=== PATIENT | male | born 1950 | race Caucasian/White ===

== ENCOUNTER 2023-03-02 11:39 | Inpatient (IN) | payer MEDICARE, OTHER ==
[~2023-03-02] VITALS: Ht 172.7 cm; Wt 81.9 kg
[2023-03-02 12:12] LABS: Basophils # (auto) 0 10 ^3/uL (0-0.2); Basophils % (auto) 0.3 % (0.0-2.0); Eosinophils # (auto) 0 10 ^3/uL (0-0.8); Hematocrit 52.2 % (41.0-53.0); Hemoglobin 16.9 g/dL (13.5-17.5); Lymphocytes # (auto) 0.9 10 ^3/uL (0.4-5.4); Lymphocytes % (auto) 7.1 % (10.0-50.0); Mean Corpuscular Hgb Conc. 32.4 g/dL (32.0-36.0); Mean Corpuscular Volume 95.6 fL (80.0-100.0); Monocytes # (auto) 0.9 10 ^3/uL (0-1.3); Monocytes % (auto) 7.4 % (0.0-12.0); Neutrophils # (auto) 10.6 10 ^3/uL (1.6-8.6); Neutrophils % (auto) 85.2 % (37.0-80.0); Nucleated Red Blood Cells % 0.1 %; Red Blood Cells 5.46 10^6/uL (4.5-5.90); Red Cell Distribution Width 17.9 % (11.8-14.3); White Blood Cell 12.5 10^3/uL (4.4-10.8)
[2023-03-02] MEDS ORDERED: dilTIAZem 25 MG/5 ML VIAL IV ONE ×2 (12:12→12:15)
[2023-03-02] MEDS ORDERED: FUROSEMIDE 40 MG/4 ML VIAL ONE (12:13)
[2023-03-02] MEDS ORDERED: FUROSEMIDE 40 MG/4 ML VIAL IV ONE (12:15)
[2023-03-02] MEDS ORDERED: dilTIAZem 125mg/125ml BAG KIT 125 ML IV ONE (12:30)
[2023-03-02] MEDS ORDERED: DIGOXIN (250MCG/ML) 2 ML AMPULE IV ONE (13:00)
[2023-03-02] MEDS ORDERED: MAGNESIUM SULFATE 1GM/100ML 100 ML IV ONE (13:00)
[2023-03-02] MEDS ORDERED: SODIUM CHLORIDE 0.9% 500 ML IV ONE (13:00)
[2023-03-02 13:04] LABS: Albumin 3.3 g/dL (3.4-5.0); Calcium 8.7 mg/dL (8.5-10.1); Potassium 5.3 mmol/L (3.5-5.1)
[2023-03-02 13:13] LABS: BUN/Creatinine Ratio 21.7 (10.0-20.0); Total Protein 6.7 g/dL (6.4-8.2)
[2023-03-02] MEDS ORDERED: ALBUTEROL SULF 2.5 MG/0.5ML(0.5%) NEB SOLN NEB ONE (14:00)
[2023-03-02] MEDS ORDERED: FUROSEMIDE 20 MG/2 ML VIAL IV ONE (14:00)
[2023-03-02] MEDS ORDERED: InsuLIN REG 1unit/0.01ml Soln (100units/ml) IV ONE (14:00)
[2023-03-02] MEDS ORDERED: DEXTROSE (50%) 50ML SYRG IV ONE (14:00)
[2023-03-02] MEDS ORDERED: SODIUM BICARBONATE 8.4% INJ 50ML SYRINGE IV ONE (14:00)
[2023-03-02] MEDS ORDERED: CALCIUM GLUC 1,000mg/50ml-NS 50 ML IV ONE (14:00)
[2023-03-02] MEDS ORDERED: SODIUM ZIRCONIUM CYCL 10 GM PAK PO ONE (14:00)
[2023-03-02] MEDS ORDERED: DEXTROSE 10% 250 ML Bag IV ONE (14:45)
[2023-03-02 16:49] LABS: Urine Bacteria FEW /hpf (None Seen); Urine Blood 1+ /uL (Negative); Urine Hyaline Cast MOD /lpf (0 - 2); Urine Mucus FEW (None Seen); Urine Specific Gravity 1.008 (1.001-1.035); Urine WBC 20 /hpf (0 - 3)
[2023-03-02] MEDS ORDERED: ALBU108A5 PO (17:11)
[2023-03-02] MEDS ORDERED: LATA0.008 EACHEYE (17:11)
[2023-03-02] MEDS ORDERED: SIMV80TA17 (17:11)
[2023-03-02] MEDS ORDERED: ENAL1TAB48 (17:11)
[2023-03-02] MEDS ORDERED: ALBUTEROL SULF 2.5 MG/0.5ML(0.5%) NEB SOLN NEB PRN (17:15)
[2023-03-02] MEDS ORDERED: NITROGLYCERIN 0.4 MG SL TAB SL PRN (17:15)
[2023-03-02] MEDS ORDERED: MORPHINE SULFATE INJ 2 MG/ml SYRG IV PRN (17:15)
[2023-03-02] MEDS ORDERED: cefTRIAXone 1GM/50ML D5W 50 ML IV ONE (17:15)
[2023-03-02] MEDS ORDERED: ACETAMINOPHEN 325 MG TAB PO PRN (17:15)
[2023-03-02 17:17] VITALS: BP 119/66
[2023-03-02] MEDS: FUROSEMIDE 40 MG/4 ML VIAL IV SCH (17:30)
[2023-03-02 17:37] LABS: Cholesterol 70 mg/dL (< 200)
[2023-03-02 17:40] LABS: HDL Cholesterol 22 mg/dL (40-59); LDL Cholesterol 47 mg/dL (< 100); Triglycerides 65 mg/dL (< 150)
[2023-03-02] MEDS: dilTIAZem 120MG ER CAP PO SCH (18:18)
[2023-03-02] MEDS: AMIODARONE HCL 200 MG TAB PO SCH (18:18)
[2023-03-02] MEDS: ALBUTEROL SULF 2.5 MG/0.5ML(0.5%) NEB SOLN NEB SCH ×2 (18:32→22:16)
[2023-03-02] MEDS: IPRATROPIUM BROM 0.5 MG/2.5ML INH SOL NEB SCH ×2 (18:32→22:16)
[2023-03-02 18:58] LABS: Lactic Acid w/Reflex 4.9 mmol/L (0.4-2.0)
[2023-03-02] MEDS ORDERED: DIGOXIN (250MCG/ML) 2 ML AMPULE IV SCH (19:00)
[2023-03-02] MEDS: ENOXAPARIN SOD 80 MG/0.8ML SYRINGE SC SCH (19:35)
[2023-03-02] MEDS ORDERED: HEPARIN SODIUM (PORCINE) 5000 UNITS/ML 1ML VIAL SC SCH (22:00)
[2023-03-02] MEDS ORDERED: DIGOXIN 0.25 MG TAB PO ONE (22:00)
[2023-03-03] MEDS: IPRATROPIUM BROM 0.5 MG/2.5ML INH SOL NEB SCH ×6 (02:17→22:14)
[2023-03-03] MEDS: ALBUTEROL SULF 2.5 MG/0.5ML(0.5%) NEB SOLN NEB SCH ×6 (02:17→22:14)
[2023-03-03 05:18] LABS: Basophils # (auto) 0 10 ^3/uL (0-0.2); Basophils % (auto) 0.3 % (0.0-2.0); Eosinophils # (auto) 0 10 ^3/uL (0-0.8); Hemoglobin 14.5 g/dL (13.5-17.5); Lymphocytes # (auto) 0.7 10 ^3/uL (0.4-5.4); Lymphocytes % (auto) 4.6 % (10.0-50.0); Mean Corpuscular Hgb Conc. 32.9 g/dL (32.0-36.0); Mean Corpuscular Volume 94.4 fL (80.0-100.0); Monocytes # (auto) 1.7 10 ^3/uL (0-1.3); Monocytes % (auto) 10.7 % (0.0-12.0); Neutrophils # (auto) 13.4 10 ^3/uL (1.6-8.6); Neutrophils % (auto) 84.4 % (37.0-80.0); Red Blood Cells 4.67 10^6/uL (4.5-5.90); White Blood Cell 15.9 10^3/uL (4.4-10.8)
[2023-03-03 05:19] LABS: Red Cell Distribution Width 16.4 % (11.8-14.3)
[2023-03-03 05:37] LABS: Albumin 2.6 g/dL (3.4-5.0); Calcium 8.2 mg/dL (8.5-10.1); Potassium 4.1 mmol/L (3.5-5.1)
[2023-03-03 05:41] LABS: BUN/Creatinine Ratio 29.4 (10.0-20.0); Bilirubin, Total 1.6 mg/dL (0.2-1.0); Total Protein 5.9 g/dL (6.4-8.2)
[2023-03-03] MEDS: FUROSEMIDE 40 MG/4 ML VIAL IV SCH (06:28)
[2023-03-03] MEDS: AMIODARONE HCL 200 MG TAB PO SCH ×2 (06:29→18:19)
[2023-03-03] MEDS: cefTRIAXone 1GM/50ML D5W 50 ML IV SCH (09:20)
[2023-03-03] MEDS ORDERED: DIGOXIN (250MCG/ML) 2 ML AMPULE IV SCH (10:00)
[2023-03-03] MEDS: DIGOXIN 0.125 MG TAB PO SCH (10:44)
[2023-03-03] MEDS: dilTIAZem 120MG ER CAP PO SCH (10:45)
[2023-03-03] MEDS: BUMETANIDE INJECTION 25 MG in GIVE UN-DILUTED 0 ML IV SCH (17:55)
[2023-03-03] MEDS: ENOXAPARIN SOD 80 MG/0.8ML SYRINGE SC SCH (19:06)
[2023-03-03 23:35] VITALS: BP 125/65
[2023-03-04] VITALS (14 sets, daily range): BP systolic 99–120; BP diastolic 52–67
[2023-03-04] MEDS: ALBUTEROL SULF 2.5 MG/0.5ML(0.5%) NEB SOLN NEB SCH ×5 (02:11→18:57)
[2023-03-04] MEDS: IPRATROPIUM BROM 0.5 MG/2.5ML INH SOL NEB SCH ×5 (02:11→18:57)
[2023-03-04] MEDS: AMIODARONE HCL 200 MG TAB PO SCH (05:57)
[2023-03-04 07:15] LABS: Anion Gap 8 (5-15); BUN/Creatinine Ratio 28.5 (10.0-20.0); Blood Urea Nitrogen 41 mg/dL (7-18); Calcium 7.9 mg/dL (8.5-10.1); Carbon Dioxide 30 mmol/L (21-32); Chloride 102 mmol/L (98-107); GFR African American 62 mL/min; GFR Non-African American 51 mL/min; Glucose 113 mg/dL (74-106); Potassium 3.4 mmol/L (3.5-5.1); Sodium 140 mmol/L (136-145)
[2023-03-04 07:44] LABS: Basophils # (auto) 0 10 ^3/uL (0-0.2); Basophils % (auto) 0.1 % (0.0-2.0); Eosinophils # (auto) 0 10 ^3/uL (0-0.8); Eosinophils % (auto) 0.1 % (0.0-7.0); Hematocrit 46.5 % (41.0-53.0); Hemoglobin 15.7 g/dL (13.5-17.5); Lymphocytes # (auto) 0.5 10 ^3/uL (0.4-5.4); Lymphocytes % (auto) 3.8 % (10.0-50.0); Mean Corpuscular Hemoglobin 31.1 pg (28.0-32.0); Mean Corpuscular Hgb Conc. 33.6 g/dL (32.0-36.0); Mean Corpuscular Volume 92.5 fL (80.0-100.0); Monocytes # (auto) 1.3 10 ^3/uL (0-1.3); Monocytes % (auto) 9.3 % (0.0-12.0); Neutrophils % (auto) 86.7 % (37.0-80.0); Nucleated Red Blood Cells % 0.1 %; Red Blood Cells 5.03 10^6/uL (4.5-5.90); Red Cell Distribution Width 16.5 % (11.8-14.3); White Blood Cell 13.8 10^3/uL (4.4-10.8)
[2023-03-04 09:05] LABS: INR 1.28 (0.9-1.15); Partial Thromboplastin Time 30.9 sec (24.6-33.4)
[2023-03-04] MEDS: cefTRIAXone 1GM/50ML D5W 50 ML IV SCH (09:14)
[2023-03-04] MEDS: dilTIAZem 120MG ER CAP PO SCH (10:04)
[2023-03-04] MEDS ORDERED: POTASSIUM EFFERVESENT TAB 25 MEQ PO ONE (14:45)
[2023-03-04] MEDS: ENOXAPARIN SOD 80 MG/0.8ML SYRINGE SC SCH (19:00)
[2023-03-04] MEDS ORDERED: ANGIOMAX 250 MG VIAL IV ONE (19:05)
[2023-03-04] MEDS ORDERED: HEPARIN SODIUM (PORCINE) 5000 UNITS/ML 1ML VIAL ONE (19:05)
[2023-03-04] MEDS ORDERED: VERAPAMIL 2.5MG/ML INJ 2ML VIAL IV ONE (19:05)
[2023-03-04] MEDS ORDERED: SODIUM CHL 0.9% 0 ML ONE (19:06)
[2023-03-04] MEDS ORDERED: fentaNYL CITRATE 100 MCG/2 ML VL ONE (19:06)
[2023-03-04] MEDS ORDERED: MIDAZOLAM HCL 2MG/2ML 2ml VIAL (1mg/ml) ONE (19:06)
[2023-03-04] MEDS ORDERED: IODIXANOL 320MG/ML 100ML BTL IV ONE ×2 (19:07→19:32)
[2023-03-04] MEDS ORDERED: LIDOCAINE 2%HCL (LOCAL ANESTH.) INJ 20ML MDV ONE (19:15)
[2023-03-04] MEDS: BUMETANIDE INJECTION 25 MG in GIVE UN-DILUTED 0 ML IV SCH (20:20)
[2023-03-05] VITALS (9 sets, daily range): BP systolic 105–129; BP diastolic 6–68
[2023-03-05] MEDS: AMIODARONE HCL 200 MG TAB PO SCH ×3 (05:53→18:39)
[2023-03-05] MEDS: IPRATROPIUM BROM 0.5 MG/2.5ML INH SOL NEB SCH ×3 (06:31→18:25)
[2023-03-05] MEDS: ALBUTEROL SULF 2.5 MG/0.5ML(0.5%) NEB SOLN NEB SCH ×3 (06:31→18:25)
[2023-03-05] MEDS: cefTRIAXone 1GM/50ML D5W 50 ML IV SCH (08:58)
[2023-03-05] MEDS: DIGOXIN 0.125 MG TAB PO SCH (09:58)
[2023-03-05] MEDS: dilTIAZem 120MG ER CAP PO SCH (09:58)
[2023-03-05] MEDS: BUMETANIDE INJECTION 25 MG in GIVE UN-DILUTED 0 ML IV SCH (14:54)
[2023-03-05] MEDS ORDERED: POTASSIUM CHL 20 Meq TABLET PO ONE ×2 (16:00→20:15)
[2023-03-05] MEDS ORDERED: POTASSIUM EFFERVESENT TAB 25 MEQ PO ONE (16:00)
[2023-03-05 18:08] LABS: BUN/Creatinine Ratio 27.9 (10.0-20.0); Calcium 8.2 mg/dL (8.5-10.1)
[2023-03-05] MEDS: ENOXAPARIN SOD 80 MG/0.8ML SYRINGE SC SCH (18:39)
[2023-03-05 20:54] LABS: Magnesium 2.1 mg/dL (1.6-2.6); Phosphorus 3.9 mg/dL (2.5-4.90)
[2023-03-06] VITALS (7 sets, daily range): BP systolic 108–129; BP diastolic 65–68
[2023-03-06 05:49] LABS: Basophils # (auto) 0 10 ^3/uL (0-0.2); Basophils % (auto) 0.1 % (0.0-2.0); Eosinophils # (auto) 0 10 ^3/uL (0-0.8); Eosinophils % (auto) 0.4 % (0.0-7.0); Hematocrit 49.9 % (41.0-53.0); Hemoglobin 16.6 g/dL (13.5-17.5); Lymphocytes # (auto) 0.7 10 ^3/uL (0.4-5.4); Lymphocytes % (auto) 6.3 % (10.0-50.0); Mean Corpuscular Hemoglobin 31.1 pg (28.0-32.0); Mean Corpuscular Hgb Conc. 33.2 g/dL (32.0-36.0); Mean Corpuscular Volume 93.7 fL (80.0-100.0); Monocytes # (auto) 1.3 10 ^3/uL (0-1.3); Monocytes % (auto) 10.8 % (0.0-12.0); Neutrophils # (auto) 9.7 10 ^3/uL (1.6-8.6); Neutrophils % (auto) 82.4 % (37.0-80.0); Red Blood Cells 5.32 10^6/uL (4.5-5.90); Red Cell Distribution Width 16.7 % (11.8-14.3); White Blood Cell 11.8 10^3/uL (4.4-10.8)
[2023-03-06 06:02] LABS: Potassium 3.7 mmol/L (3.5-5.1)
[2023-03-06 06:14] LABS: BUN/Creatinine Ratio 30.9 (10.0-20.0); Calcium 8.7 mg/dL (8.5-10.1)
[2023-03-06] MEDS: AMIODARONE HCL 200 MG TAB PO SCH (07:12)
[2023-03-06] MEDS: ALBUTEROL SULF 2.5 MG/0.5ML(0.5%) NEB SOLN NEB SCH ×4 (07:28→18:18)
[2023-03-06] MEDS: IPRATROPIUM BROM 0.5 MG/2.5ML INH SOL NEB SCH ×4 (07:28→18:18)
[2023-03-06] MEDS: cefTRIAXone 1GM/50ML D5W 50 ML IV SCH (09:07)
[2023-03-06] MEDS: dilTIAZem 120MG ER CAP PO SCH (09:39)
[2023-03-06] MEDS ORDERED: FUROSEMIDE 40 MG/4 ML VIAL IV SCH (10:00)
[2023-03-07] MEDS ORDERED: FUROSEMIDE 40 MG/4 ML VIAL IV SCH (10:00)
== END 2023-03-06 17:17 | disposition short-term general hospital (02) | DRG 286 ==
LOC: ER 11:39 → TELE 17:10 → TELE-WESTW 03-03 21:24
PROVIDERS: ADMIT Nurse Practitioner Family; ATTEND Internal Medicine Geriatric Medicine
PROC: 4A023N8 Measurement of Cardiac Sampling and Pressure, Bilateral, Percutaneous Approach (ICD-10-PCS; principal; 2023-03-04)
PROC: B211YZZ Fluoroscopy of Multiple Coronary Arteries using Other Contrast (ICD-10-PCS; 2023-03-04)
PROC: B215YZZ Fluoroscopy of Left Heart using Other Contrast (ICD-10-PCS; 2023-03-04)
DX: I13.0 Hypertensive heart and chronic kidney disease with heart failure and stage 1 through stage 4 chronic kidney disease, or unspecified chronic kidney disease (principal); I50.43 Acute on chronic combined systolic (congestive) and diastolic (congestive) heart failure; J96.01 Acute respiratory failure with hypoxia; N17.9 Acute kidney failure, unspecified; N30.00 Acute cystitis without hematuria; E44.0 Moderate protein-calorie malnutrition; E87.5 Hyperkalemia; I48.91 Unspecified atrial fibrillation; E78.5 Hyperlipidemia, unspecified; I08.0 Rheumatic disorders of both mitral and aortic valves; N18.9 Chronic kidney disease, unspecified; I25.10 Atherosclerotic heart disease of native coronary artery without angina pectoris; R14.0 Abdominal distension (gaseous); R79.89 Other specified abnormal findings of blood chemistry; D72.829 Elevated white blood cell count, unspecified; K74.60 Unspecified cirrhosis of liver; Z68.27 Body mass index [BMI] 27.0-27.9, adult; Z82.49 Family history of ischemic heart disease and other diseases of the circulatory system; Z20.822 Contact with and (suspected) exposure to COVID-19
CPT/HCPCS: 36415; 36600; 71045; 76705; 76937; 80048; 80053; 80061; 80162; 81001; 82805; 82962; 83036; 83605; 83735; 83880; 84100; 84132; 84443; 84484; 85025; 85610; 85730; 86850; 86900; 86901; 87040; 87086; 87088; 87186; 93005; 93306; 93460; 94640; 96365; 96375; 99152; 99153; 99291; G0378; J0696; J1815; J2250; Q9967